=== PATIENT | male | born 1945 | race Caucasian/White ===

== ENCOUNTER 2017-01-09 13:58 | Emergency (ER) | payer OTHER, MEDICARE ==
[~2017-01-09 13:58] MED LIST: APIX5 PO; ASPI81TA82 PO; ATOR40TA49 PO; CHLO25 PO; DILTCD180 PO; PROP40TA3 PO; THIA100T PO; ZOVI200C24 PO
[2017-01-09 14:06] VITALS: BP 167/103; PULSE 73; RESP 18; TEMP 98.1; O2SAT 97
[2017-01-09] MEDS ORDERED: PROP40TA3 PO (14:19)
[2017-01-09] MEDS ORDERED: PRAD150C PO (14:19)
[2017-01-09] MEDS ORDERED: METH500T3 PO (14:19)
[2017-01-09] MEDS ORDERED: CARD180C5 PO (14:19)
[2017-01-09] MEDS ORDERED: ACYC200C66 PO (14:19)
[2017-01-09] MEDS ORDERED: TRAM50TA PO (14:19)
[2017-01-09] MEDS ORDERED: MORPHINE SULFATE 4 MG/ML INJ IV PUSH ONE ×2 (14:45→16:30)
[2017-01-09] MEDS ORDERED: ONDANSETRON HCL 4 MG/2 ML VIAL IV PUSH ONE (14:45)
[2017-01-09] MEDS ORDERED: SODIUM CHLOR 0.9% 1000 ML INJ 1,000 ML IV SCH (14:45)
[2017-01-09 14:52] LABS: AUTOMATED NEUTROPHIL # 4.9 TH/MM3 (1.8-7.7); BASOPHIL # 0.1 TH/MM3 (0-0.2); EOSINOPHIL # 0.2 TH/MM3 (0-0.4); EOSINOPHIL % 2.2 % (0.0-4.0); HEMATOCRIT 49.5 % (39.0-51.0); HEMO FLAGS DIFF FINAL; LYMPH % 35.2 % (9.0-44.0); LYMPHOCYTE # 3.6 TH/MM3 (1.0-4.8); MEAN CELL VOLUME 92.6 FL (80.0-100.0); MEAN CORPUSCULAR HEMOGLOBIN 31.6 PG (27.0-34.0); MEAN CORPUSCULAR HGB CONC 34.1 % (32.0-36.0); MONO % 13.9 % (0.0-8.0); NEUT % 47.7 % (16.0-70.0); PLATELET COUNT 316 TH/MM3 (150-450); RED BLOOD COUNT 5.34 MIL/MM3 (4.50-5.90); RED CELL DISTRIBUTION WIDTH 14.7 % (11.6-17.2); WHITE BLOOD COUNT 10.2 TH/MM3 (4.0-11.0)
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
[2017-01-09 15:11] LABS: ALKALINE PHOSPHATASE 72 U/L (45-117); TOTAL BILIRUBIN ADULT 0.5 MG/DL (0.2-1.0)
[2017-01-09 15:30] LABS: APTT (PATIENT) 42.7 SEC (24.3-30.1); INTERNATIONAL NORMALIZED RATIO 1.1 RATIO; PROTHROMBIN TIME - PATIENT 12.1 SEC (9.8-11.6)
[2017-01-09 15:42] LABS: ALT (GPT) 26 U/L (12-78); ANION GAP 7 MEQ/L (5-15); AST (GOT) 22 U/L (15-37); BICARBONATE 27.7 MEQ/L (21.0-32.0); BLOOD UREA NITROGEN 13 MG/DL (7-18); CHLORIDE 107 MEQ/L (98-107); GLOMERULAR FILTRATION RATE 73 ML/MIN (>89); SODIUM (NA) 142 MEQ/L (136-145)
[2017-01-09 15:44] LABS: POTASSIUM 4.7 MEQ/L (3.5-5.1)
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
[2017-01-09] MEDS ORDERED: IOHEXOL 350 MG/ML 10 ML VIAL (for RAD DIAG) IV ONE (16:42)
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
[2017-01-09] MEDS ORDERED: LIDO5DIS35 TOPICAL (18:23)
[2017-01-09] MEDS ORDERED: NORC5TAB PO (18:23)
[2017-01-09] MEDS ORDERED: KETOROLAC TROMETHAMINE 30 MG/ML (IVP) VIAL IV PUSH ONE (18:30)
[2017-01-09 18:44] VITALS: BP 145/90
--- NOTE | 2017-01-10 15:44 | EKG ---
Date Performed: 01/09/2017 Time Performed: 14:14:32 PTAGE: 71 years EKG: ATRIAL FIBRILLATION LOW QRS VOLTAGE IN PRECORDIAL LEADS POSSIBLE ANTERIOR MYOCARDIAL INFARC TION ABNORMAL RHYTHM ECG PREVIOUS TRACING : 12/05/2014 09.31 DOCTOR: Hill Kelly Interpretating Date/Time 01/10/2017 15:37:04
== END 2017-01-09 18:44 | disposition home or self-care (01) ==
LOC: NEPE 13:58
DX: S09.90XA Unspecified injury of head, initial encounter (principal); T14.8 Other injury of unspecified body region; V49.40XA Driver injured in collision with unspecified motor vehicles in traffic accident, initial encounter
CPT/HCPCS: 70450; 71010; 71260; 74177; 80053; 85025; 85610; 85730; 93005; 96374; 96375; 96376; 99285; J2270; J2405; J7030; Q9967